=== PATIENT | male | born 1960 | race Caucasian/White ===

== ENCOUNTER → 2017-08-09 | Outpatient (CLI) | payer SELFPAY | END | disposition home or self-care (01) | LOC: LABWHC1 16:05 | PROVIDERS: ATTEND Pathology Anatomic Pathology & Clinical Pathology | DX: Z52.3 Bone marrow donor (principal) | CPT/HCPCS: 36415 ==

== ENCOUNTER 2021-08-07 19:52 | Emergency (ER) | payer OTHER ==
[2021-08-07 20:01] VITALS: TEMP 97.7
[2021-08-07 20:25] LABS: Basophils # (A) 0.1 k/uL (0-0.2); Basophils % (A) 1 %; Eosinophils # (A) 0.1 k/uL (0-0.7); Eosinophils % (A) 1 %; HCT 40.7 % (39.0-53.0); HGB 14.1 gm/dL (13.0-17.5); Lymphocytes # (A) 2.1 k/uL (1.0-4.8); Lymphocytes % (A) 25 %; MCH 30.5 pg (25.0-35.0); MCHC 34.7 g/dL (31.0-37.0); MCV 87.9 fL (80.0-100.0); Mean Platelet Volume 7.8; Monocytes # (A) 0.4 k/uL (0-1.0); Monocytes % (A) 4 %; Neutrophils # (A) 5.8 k/uL (1.3-7.7); Neutrophils % (A) 68 %; Platelet Count 233 k/uL (150-450); RBC 4.63 m/uL (4.30-5.90); RDW 12.9 % (11.5-15.5); WBC 8.5 k/uL (3.8-10.6)
[2021-08-07 20:40] LABS: INR 1.1 (<1.2); Prothrombin Time 11.3 sec (9.0-12.0)
[2021-08-07 20:41] LABS: ALT 26 U/L (4-49); AST 27 U/L (17-59); African American GFR (CKD) >90 (>60 ml/min/1.73 sqM); Albumin 4.5 g/dL (3.5-5.0); Alkaline Phosphatase 66 U/L (38-126); Anion Gap 9 mmol/L; Blood Urea Nitrogen 15 mg/dL (9-20); Calcium 9.7 mg/dL (8.4-10.2); Carbon Dioxide 29 mmol/L (22-30); Chloride 102 mmol/L (98-107); Glucose 123 mg/dL (74-99); Magnesium 1.9 mg/dL (1.6-2.3); Non-African American GFR(CKD) 89 (>60 ml/min/1.73 sqM); Partial Thromboplastin Time 22.4 sec (22.0-30.0); Potassium 3.9 mmol/L (3.5-5.1); Sodium 140 mmol/L (137-145); Total Bilirubin 0.8 mg/dL (0.2-1.3); Total Protein 7.2 g/dL (6.3-8.2)
--- NOTE | 2021-08-07 21:36 | ED ---
General Adult HPI - General Chief complaint: Chest Pain Stated complaint: Chest Pain Time Seen by Provider: 08/07/21 21:00 Source: patient Mode of arrival: ambulatory Limitations: no limitations - History of Present Illness Initial comments: 61-year-old male presents emergency Department with palpitations that have been occurring for the past few months. Admits to a fluttering sensation. Denies any provocative factors. States that it is very infrequent. Patient had an episode today while he was sitting at his [id number] house. He began sw eating profusely. Episode happened at 7:30 PM denies history of irregular heart rhythms. Does have family history of coronary disease. He last had a stress test in the early 1999. He denies any associated chest pain or shortness of breath. No lower extremity swelling. No other alleviating, precipitating or modifying factors - Related Data Home Medications Medication Instructions Recorded Confirmed Atorvastatin Calcium [Lipitor] 80 mg PO HS 08/07/21 08/07/21 Levothyroxine Sodium [Synthroid] 125 mcg PO DAILY 08/07/21 08/07/21 Multivitamins, Thera [Multivitamin 1 tab PO DAILY 08/07/21 08/07/21 (formulary)] Lincoln-3/Dha/Epa/Fish Oil [Fish Oil 1 cap PO DAILY 08/07/21 08/07/21 1,000 mg Softgel] metFORMIN HCL [Glucophage] 1,000 mg PO DAILY 08/07/21 08/07/21 Allergies Allergy/AdvReac Type Severity Reaction Status Date / Time No Known Allergies Allergy Verified 08/07/21 22:14 Review of Systems ROS Statement: Those systems with pertinent positive or pertinent negative responses have been documented in the HPI. ROS Other: All systems not noted in ROS Statement are negative. Past Medical History History of Any Multi-Drug Resistant Organisms: None Reported Past Psychological History: No Psychological Hx Reported Smoking Status: Never smoker Past Alcohol Use History: Rare Past Drug Use History: None Reported General Exam Limitations: no limitations Course Vital Signs 08/07/21 19:57 Temperature 97.7 F Pulse Rate 91 Respiratory 16 Rate Blood Pressure 174/99 O2 Sat by Pulse 99 Oximetry EKG Findings - EKG Comments: EKG Findings:: EKG demonstrates sinus rhythm with a rate of 83. PA interval 140. QRS 160. QTC of 433. Right bundle branch block. No acute ST segment elevations Medical Decision Making - Medical Decision Making Upon arrival patient was placed into room 10. A thorough history and physical exam was performed. IV access established and laboratory studies were conducted. Laboratory studies are reviewed and demonstrates a negative troponin. Patient continues to be on the quality assurance monitor without signs of arrhythmia. The patient does have some PACs. Chest x-ray demonstrates no acute process. I did discuss the diagnosis, differential and treatment options. Patient does stay for a second troponin. Patient is instructed to follow-up wit h his primary care doctor or the [facility] for monitoring. Return for any new or worsening symptoms. Patient was discharged home in stable condition - Lab Data Result diagrams: 08/07/21 20:17 08/07/21 20:17 Lab Results 08/07/21 08/07/21 08/07/21 Range/Units 20:17 20:17 20:17 WBC 8.5 (3.8-10.6) k/uL RBC 4.63 (4.30-5.90) m/uL Hgb 14.1 (13.0-17.5) gm/dL Hct 40.7 (39.0-53.0) % MCV 87.9 (80.0-100.0) fL MCH 30.5 (25.0-35.0) pg MCHC 34.7 (31.0-37.0) g/dL RDW 12.9 (11.5-15.5) % Plt Count 233 (150-450) k/uL MPV 7.8 Neutrophils % 68 % Lymphocytes % 25 % Monocytes % 4 % Eosinophils % 1 % Basophils % 1 % Neutrophils # 5.8 (1.3-7.7) k/uL Lymphocytes # 2.1 (1.0-4.8) k/uL Monocytes # 0.4 (0-1.0) k/uL Eosinophils # 0.1 (0-0.7) k/uL Basophils # 0.1 (0-0.2) k/uL PT 11.3 (9.0-12.0) sec INR 1.1 (<1.2) APTT 22.4 (22.0-30.0) sec Sodium 140 (137-145) mmol/L Potassium 3.9 (3.5-5.1) mmol/L Chloride 102 (98-107) mmol/L Carbon Dioxide 29 (22-30) mmol/L Anion Gap 9 mmol/L BUN 15 (9-20) mg/dL Creatinine 0.94 (0.66-1.25) mg/dL Est GFR (CKD-EPI)AfAm >90 (>60 ml/min/1.73 sqM) Est GFR (CKD-EPI)NonAf 89 (>60 ml/min/1.73 sqM) Glucose 123 H (74-99) mg/dL Calcium 9.7 (8.4-10.2) mg/dL Magnesium 1.9 (1.6-2.3) mg/dL Total Bilirubin 0.8 (0.2-1.3) mg/dL AST 27 (17-59) U/L ALT 26 (4-49) U/L Alkaline Phosphatase 66 (38-126) U/L Troponin I (0.000-0.034) ng/mL Total Protein 7.2 (6.3-8.2) g/dL Albumin 4.5 (3.5-5.0) g/dL TSH (0.465-4.680) mIU/L 08/07/21/11/20 Range/Units 20:17 20:17 WBC (3.8-10.6) k/uL RBC (4.30-5.90) m/uL Hgb (13.0-17.5) gm/dL Hct (39.0-53.0) % MCV (80.0-100.0) fL MCH (25.0-35.0) pg MCHC (31.0-37.0) g/dL RDW (11.5-15.5) % Plt Count (150-450) k/uL MPV Neutrophils % % Lymphocytes % % Monocytes % % Eosinophils % % Basophils % % Neutrophils # (1.3-7.7) k/uL Lymphocytes # (1.0-4.8) k/uL Monocytes # (0-1.0) k/uL Eosinophils # (0-0.7) k/uL Basophils # (0-0.2) k/uL PT (9.0-12.0) sec INR (<1.2) APTT (22.0-30.0) sec Sodium (137-145) mmol/L Potassium (3.5-5.1) mmol/L Chloride (98-107) mmol/L Carbon Dioxide (22-30) mmol/L Anion Gap mmol/L BUN (9-20) mg/dL Creatinine (0.66-1.25) mg/dL Est GFR (CKD-EPI)AfAm (>60 ml/min/1.73 sqM) Est GFR (CKD-EPI)NonAf (>60 ml/min/1.73 sqM) Glucose (74-99) mg/dL Calcium (8.4-10.2) mg/dL Magnesium (1.6-2.3) mg/dL Total Bilirubin (0.2-1.3) mg/dL AST (17-59) U/L ALT (4-49) U/L Alkaline Phosphatase (38-126) U/L Troponin I <0.012 (0.000-0.034) ng/mL Total Protein (6.3-8.2) g/dL Albumin (3.5-5.0) g/dL TSH 0.111 L (0.465-4.680) mIU/L Disposition Clinical Impression: Palpitations Disposition: HOME SELF-CARE Condition: Stable Instructions (If sedation given, give patient instructions): Heart Palpitations (ED) Additional Instructions: Please follow-up with either your primary care or the cardiology office for Holter monitoring. Return for any new or worsening symptoms Is patient prescribed a controlled substance at d/c from ED?: No Referrals: Alex Gutierrez MD [Primary Care Provider] - 1-2 days [facility] [Provider Group] - 1-2 days Time of Disposition: 23:18
--- NOTE | 2021-08-07 21:55 | XR ---
EXAMINATION: XR chest 2V DATE AND TIME: 08/07/2021 9:15 PM CLINICAL INDICATION: PHH; Chest Pain TECHNIQUE: Departmental protocol COMPARISON: None FINDINGS: The lungs are clear. The pleural spaces are negative. The cardiac silhouette is not enlarged. The remainder of the mediastinal silhouette is unremarkable. The skeletal structures and soft tissues are negative for acute findings. IMPRESSION: NO ACUTE PROCESS.
[2021-08-08 00:15] VITALS: BP 155/88; PULSE 71; RESP 18
[2021-08-08 02:33] LABS: T4, Free (Free Thyroxine) 1.72 ng/dL (0.78-2.19)
== END 2021-08-08 00:45 | disposition home or self-care (01) ==
LOC: EC 19:52
DX: R00.2 Palpitations (principal)
CPT/HCPCS: 36415; 71046; 80053; 83735; 84439; 84443; 84484; 85025; 85610; 85730; 93005; 99285

== ENCOUNTER → 2021-08-19 | Outpatient (CLI) | payer OTHER ==
--- NOTE | 2021-08-19 12:58 | NM ---
EXAMINATION TYPE: NM stress cardiolite complete DATE OF EXAM: 08/19/2021 COMPARISON: NONE HISTORY: Hypertension TECHNIQUE: After the intravenous administration of 10.2 mCi Tc 99m Sestamibi - Rest images obtained 50 minutes post injection. The patient exercised using a KARIN protocol and 1 minute prior to peak exercise was injected with 24.1 mCi Tc 99m Sestamibi - Stress images obtained 20 minutes post injecti on. FINDINGS: Targeted heart rate was achieved during performance of the study. Review of stress and rest SPECT aysha ges demonstrates fixed perfusion defect involving the inferior wall which could be artifactual. Corre late clinically.. Gated analysis shows normal wall motion with an estimated left ventricular ejectio n fraction of 54 %. IMPRESSION: No definite scintigraphic evidence for reversible ischemia. See above.
--- NOTE | 2021-08-19 16:03 | CA ---
Exercise Stress Test Report Name: Jos Pickering Exam Date: 08/19/2021 10:30 Exam Location: [place] Stress Ht (in): 73 Wt (lb): 180 BSA: 2.06 Ordering Phys: Alex Gutierrez MD Referring Phys: ANDREW, Technologist: Andrew House Age: 61 Gender: M : 1960 Procedure CPT: Indications: I10 HYPERTENSION ICD-10 Codes: Patient History: Hypertension Medications: Levothyroxine, Metformin, Atorvastatin Meds past 24 hrs: Pretest Chest Pain: STRESS TEST Marco Antonio Protocol Exercise Duration (min:sec): 09:[address] Depressions (mm): Angina Score: [place]oyos Score: Resting HR (bpm): 73 Peak HR (bpm): 166 Resting BP (mmHg): 138 / 88 Peak BP (mmHg): 196 / 76 MPHR: 161 Target HR: 137 % MPHR: 103 METS: 10.3 Total Dose: Peak Dose: Atropine: Double Product: 29194 BP Response: Stress Termination: Reached target heart rate Stress Symptoms: No chest pain or symptoms Stress Summary: ECG ANALYSIS Resting ECG: Stress ECG: CONCLUSIONS Baseline 12-lead shows sinus rhythm with a right bundle branch block pattern normal ST segments Patient exercised on Marco Antonio protocol for 9 minutes achieving a peak heart rate of 166 beats a minute repeat blood pressure 196/74 mmHg Occasional RVOT PVCs noted No sustained or nonsustained VT There was no ECG evidence for ischemia Dr. Rafa Mcbride MD (Electronically Signed) Final Date: 19 August 2021 16:02
== END | disposition home or self-care (01) ==
LOC: RADNMMAIN 08:32
PROVIDERS: ATTEND Family Medicine
DX: I10 Essential (primary) hypertension (principal); R94.31 Abnormal electrocardiogram [ECG] [EKG]
CPT/HCPCS: 93017; 78452; A9500

== ENCOUNTER → 2024-02-01 | Outpatient (CLI) | payer OTHER ==
--- NOTE | 2024-02-01 10:52 | US ---
EXAMINATION TYPE: US venous doppler duplex LE LT DATE OF EXAM: 02/01/2024 9:46 AM COMPARISON: NONE CLINICAL INDICATION: Male, 63 years old with history of I82.402 LEFT LEG DVT; calf pain x few weeks, no injury, Pain TECHNIQUE: The lower extremity deep venous system is examined utilizing real time linear array sonog carlitos with graded compression, color doppler sonography, and spectral doppler. SIDE PERFORMED: Left FINDINGS: VESSELS IMAGED: Common Femoral Vein Deep Femoral Vein Greater Saphenous Vein * Femoral Vein Popliteal Vein Small Saphenous Vein * Proximal Calf Veins (* superficial vessels) Left Leg: POSITIVE for DVT popliteal vein into the upper calf, Color Doppler imaging shows patency o f the vessels. Spectral waveforms are within normal limits. IMPRESSION: The appearance of acute DVT behind the knee and extending into the upper calf. [facility], , 02/01/2024 10:50 AM
== END | disposition home or self-care (01) ==
LOC: RADUSWWP 09:41
PROVIDERS: ATTEND Family Medicine
DX: I82.402 Acute embolism and thrombosis of unspecified deep veins of left lower extremity (principal); R10.9 Unspecified abdominal pain